=== PATIENT | female | born 1975 | race Two or more races ===

== ENCOUNTER → 2017-04-10 15:33 | Outpatient (CLI) | payer OTHER | END | disposition home or self-care (01) | LOC: LAB 15:33 | DX: J11.1 Influenza due to unidentified influenza virus with other respiratory manifestations (principal); J10.1 Influenza due to other identified influenza virus with other respiratory manifestations ==

== ENCOUNTER → 2017-04-10 | Outpatient (CLI) | payer OTHER ==
[~2017-04-10] VITALS: Ht 152.4 cm; Wt 75.7 kg
[~2017-04-10] MED LIST: ALLEGRA ALLERG180 MG PO; FLONASE16 GM NS; GILTUSS TR TAB1 EACH PO; ZITHROMAX TRI-500 MG PO
== END | disposition home or self-care (01) ==
LOC: PPHC 12:14
DX: J06.9 Acute upper respiratory infection, unspecified (principal)

== ENCOUNTER 2018-04-30 14:50 | Outpatient (CLI) | payer OTHER | END 2018-04-30 15:08 | disposition home or self-care (01) | LOC: LAB 14:50 | DX: J20.0 Acute bronchitis due to Mycoplasma pneumoniae (principal); J11.1 Influenza due to unidentified influenza virus with other respiratory manifestations ==

== ENCOUNTER 2018-12-04 12:25 | Outpatient (CLI) | payer OTHER | END 2018-12-04 12:31 | disposition home or self-care (01) | LOC: MAMO-SONO 12:25 | DX: Z12.31 Encounter for screening mammogram for malignant neoplasm of breast (principal); Z87.898 Personal history of other specified conditions; N60.11 Diffuse cystic mastopathy of right breast ==

== ENCOUNTER → 2019-02-18 | Outpatient (CLI) | payer OTHER | END | disposition home or self-care (01) | LOC: SONOGRAMA 10:10 | DX: D35.01 Benign neoplasm of right adrenal gland (principal) ==

== ENCOUNTER 2020-04-21 09:55 | Outpatient (CLI) | payer OTHER | END 2020-04-21 10:07 | disposition home or self-care (01) | LOC: MAMO-SONO 09:55 | PROVIDERS: ATTEND Obstetrics & Gynecology | DX: Z12.31 Encounter for screening mammogram for malignant neoplasm of breast (principal); N64.59 Other signs and symptoms in breast ==

== ENCOUNTER 2020-12-28 08:40 | Outpatient (CLI) | payer OTHER | END 2020-12-28 08:52 | disposition home or self-care (01) | LOC: SONOGRAMA 08:40 → MAMO-SONO 08:45 → SONOGRAMA 08:52 | PROVIDERS: ATTEND Obstetrics & Gynecology Gynecology | DX: N60.11 Diffuse cystic mastopathy of right breast (principal); N60.12 Diffuse cystic mastopathy of left breast; N64.3 Galactorrhea not associated with childbirth; N76.2 Acute vulvitis; R31.29 Other microscopic hematuria; E55.9 Vitamin D deficiency, unspecified; N20.0 Calculus of kidney; R31.21 Asymptomatic microscopic hematuria; R10.2 Pelvic and perineal pain; R10.11 Right upper quadrant pain; N83.292 Other ovarian cyst, left side; N83.291 Other ovarian cyst, right side ==

== ENCOUNTER 2021-05-25 08:19 | Outpatient (CLI) | payer OTHER | END 2021-05-25 08:31 | disposition home or self-care (01) | LOC: RAD 08:19 | PROVIDERS: ATTEND Obstetrics & Gynecology Gynecology | DX: N60.11 Diffuse cystic mastopathy of right breast (principal); N60.12 Diffuse cystic mastopathy of left breast ==

== ENCOUNTER 2021-07-08 11:28 | Outpatient (CLI) | payer OTHER | END 2021-07-09 15:12 | disposition home or self-care (01) | LOC: MRI 11:28 | PROVIDERS: ATTEND Obstetrics & Gynecology | DX: R10.2 Pelvic and perineal pain (principal); D25.9 Leiomyoma of uterus, unspecified | CPT/HCPCS: 72197 ==

== ENCOUNTER → 2022-06-13 | Outpatient (CLI) | payer OTHER | END | disposition home or self-care (01) | LOC: MAMO-SONO 08:31 | DX: Q61.9 Cystic kidney disease, unspecified (principal); D35.01 Benign neoplasm of right adrenal gland; Z12.31 Encounter for screening mammogram for malignant neoplasm of breast ==

== ENCOUNTER 2023-08-29 09:45 | Outpatient (CLI) | payer OTHER | END 2023-08-29 10:04 | disposition home or self-care (01) | LOC: MAMO-SONO 09:45 | DX: Z12.31 Encounter for screening mammogram for malignant neoplasm of breast (principal); N64.4 Mastodynia ==